=== PATIENT | female | born 1950 | race Caucasian/White ===

== ENCOUNTER 2017-03-25 09:22 | Emergency (ER) | payer BC ==
--- NOTE | ~2017-03-25 | CR230 ---
[facility] A Service of [facility] & [facility] RADIOLOGY TEXT RESULTS PATIENT: CAITLYN ABDALLA LOCATION: [facility] : 54 UNIT #: [id number] AGE: [address]: Paulina Smith APRN SEX: F ORDER DR: [id number] [facility] [address] [place], [place] [address] [id number] E MR#: [id number] #: [id number] NAME: CAITLYN ABDALLA : 1950 SEX: F STUDY DATE/TIME: 03/25/2017 10:01 UNIT: [facility] ROOM: STUDY DESCRIPTION: CR Shoulder Min 2 View Rt Attending Physician: Paulina Smith A.P.R.N. Ordering Physician: Carlos De Los Santos M.D. Primary Care Physician: Aden Johnson M.D. MEDICAL IMAGING REPORT This report is preliminary unless electronic signature is present EXAM Right shoulder 3 views 03/25/2017 1001 hours CLINICAL HISTORY Right shoulder pain for 1 week. No known injury. COMPARISON Chest film 04/17/2011. No prior shoulder films. FINDINGS AP views in internal and external rotation and a scapula Y-view demonstrate mild degenerative change at the glenohumeral joint and acromioclavicular joint. There is lucent and sclerotic change at the greater tuberosity likely at the rotator cuff insertion likely indicative of chronic change. No fractures seen. IMPRESSION 1. No fracture, dislocation, or soft tissue calcification. 2. There is degenerative spurring of both the glenohumeral joint and acromioclavicular joint. 3. There is sclerotic change in lucency at the greater tuberosity at the rotator cuff insertion site which may indicate chronic tendinitis or tendinopathy. Dictated by... Ivy Burciaga M.D. THIS IS AN ELECTRONICALLY VERIFIED REPORT Ivy Burciaga M.D. at 03/25/2017 2:26 PM JOSE/inocente TD: 03/25/2017 11:03 STS. [facility] A Service of [facility] & [facility] RADIOLOGY TEXT RESULTS PATIENT: CAITLYN ABDALLA LOCATION: [facility] : 54 UNIT #: [id number] AGE: [address]: Paulina Smith APRN SEX: F ORDER DR: JOB #: [id number] MEDICAL IMAGING REPORT Page 1 of 1 COPY
[~2017-03-25 09:22] MED LIST: ALBUTEROL17 GM INH; ALLEGRA PO; ALLEGRA60 M1 PO; ASPIRIN PO; ASPIRIN81 M1 PO; AVALIDE 300-12.1 TAB PO; CENTRUM SILVER PO; DIAZEPAM; DIAZEPAM PO; DYNACIRC PO; DYNACIRC5 MG PO; FISH OIL 1,0001 CAP PO; FISH OIL 1,0001 EAC2 PO; FUROSEMIDE40 MG PO; GLUCOPHAGE XR500 MG PO; HYZAAR 100-12.51 TAB PO; LASIX PO; MULTI-VIT/MIN P1 TAB PO; PRAVACHOL PO; PREMARIN PO; PREMARIN0.9 MG; SIMVASTATIN40 MG; ULTRAM PO; ZOLOFT; ZOLOFT PO
== END 2017-03-25 10:50 | disposition home or self-care (01) ==
LOC: CFTX 09:22 → CED 09:22 → CFTX 10:27
DX: S46.911A Strain of unspecified muscle, fascia and tendon at shoulder and upper arm level, right arm, initial encounter (principal); E11.9 Type 2 diabetes mellitus without complications; I10 Essential (primary) hypertension; Z79.84 Long term (current) use of oral hypoglycemic drugs; W18.49XA Other slipping, tripping and stumbling without falling, initial encounter; Y92.69 Other specified industrial and construction area as the place of occurrence of the external cause
CPT/HCPCS: 73030; 99283